=== PATIENT | male | born 1995 | race Caucasian/White ===

== ENCOUNTER 2017-02-27 11:50 | Emergency (ER) | payer BC ==
[2017-02-27 12:23] LABS: BLOOD UREA NITROGEN 13 mg/dL (9-20); CALCIUM 10.6 mg/dL (8.4-10.2); CHLORIDE 103 mmol/L (98-107); EST GLOMERULAR FILTRATION RATE > 60 mL/min; GLUCOSE 99 mg/dL (70-100); POTASSIUM 3.7 mmol/L (3.5-5.1); SODIUM 139 mmol/L (137-145)
[2017-02-27] MEDS ORDERED: NORMAL SALINE 1,000 ML IV ONE (12:25)
[2017-02-27] MEDS ORDERED: ONDANSETRON HCL 4 MG/2 ML VIAL ONE (12:25)
--- NOTE | 2017-02-27 14:16 | ER PHYSICIAN DOCUMENTATION ---
Physician Documentation [facility] Name:René Nieto Age:21 yrs Sex:Male :1995 Arrival Date:02/27/2017 Time:11:50 Bed3 Private MD: Brown Fair Disposition: 02/27 15:00 Chart complete. tl1 Disposition: 02/27/17 13:59 Discharged to Home/Self Care. Impression: Giardiasis. - Condition is Good. - Prescriptions for Flagyl 500 mg Oral Tablet - take 1 tablet by ORAL route every 8 hours for 10 days; 30 tablet. - Medical Reconciliation form form. - Follow up: Private Physician; When: 7 - 10 days; Reason: Recheck today's complaints, Continuance of care. - Problem is new. - Symptoms have improved. HPI: 12:08 This 21 yrs old Male presents to ER via Private Vehicle with complaints of tl1 Abdominal Pain, Nausea/Vomiting/Diarrhea. 12:08 The patient presents with diarrhea. Onset: The symptoms/episode began/occurred tl1 gradually, 2.5 day(s) ago. The symptoms are described as . [place] filtered water. About 2.5 days ago he noted the onset of frequent watery diarrhea, that is foul smelling. He has had some mild abdominal distension and bloating. Not really a "rotten eggs" odor. No blood. No f/c/s. No melena or hematochezia . No recent antibiotics or contacts with a similar illness. No travel outside the country.. Historical: - Allergies: Amoxicillin; - Home Meds: 1. None - PMHx: None; - PSHx: None; - Tetanus: < 10 years. - Ebola Screening: : No symptoms or risks identified at this time. . - Immunization history: NA. - Social history: Smoking status: Patient states was never smoker of tobacco. Patient uses alcohol occasionally. Patient/guardian denies using street drugs. ROS: 12:08 Abdomen/GI: Positive for diarrhea. tl1 12:08 All other systems are negative. Exam: 12:08 Constitutional: This is a well developed, well nourished patient who is awake, alert, tl1 and in no acute distress. Head/Face: Normocephalic, atraumatic. ENT: Nares patent. No nasal discharge, no septal abnormalities noted. Tympanic membranes are normal and external auditory canals are clear. Oropharynx with no redness, swelling, or masses, exudates, or evidence of obstruction, uvula midline. Mucous membranes moist. Cardiovascular: Regular rate and rhythm with a normal S1 and S2. No gallops, murmurs, or rubs. Normal PMI, no JVD. No pulse deficits. 12:08 Respiratory: Lungs have equal breath sounds bilaterally, clear to auscultation and tl1 percussion. No rales, rhonchi or wheezes noted. No increased work of breathing, no retractions or nasal flaring. 12:08 Abdomen/GI: Inspection: abdomen appears normal, Bowel sounds: active, Palpation: soft, mild abdominal tenderness, in the right lower quadrant and left lower quadrant, rebound tenderness, is not appreciated, voluntary guarding, is not appreciated, no appreciated organomegaly. 12:08 Musculoskeletal/extremity: Exam is negative for acute changes. 12:08 Skin: Exam negative for acute changes. 12:08 Neuro: Exam negative for acute changes. Vital Signs: 12:01 BP 125 / 95; Pulse 86; Resp 12; Temp 97.6; Pulse Ox 97% on R/A; Weight 79.38 kg; Height nf 6 ft. 5 in. (195.58 cm); Pain 0/10; 13:36 BP 117 / 76; Pulse 74; Resp 12; Pain 0/10; nf 12:01 Body Mass Index 20.75 (79.38 kg, 195.58 cm) nf MDM: 12:08 Patient medically screened. tl1 13:00 Differential diagnosis: Viral vs bacterial gastroenteritis, C dif, Parasites. Giardia tl1 most likely. Data reviewed: vital signs, nurses notes, lab test result(s), Giardia assay is positive., and as a result, I will discharge patient, administer antibiotics Flagyl. Counseling: I had a detailed discussion with the patient and/or guardian regarding: the historical points, exam findings, and any diagnostic results supporting the discharge/admit diagnosis, lab results, the need for outpatient follow up, to return to the emergency department if symptoms worsen or persist or if there are any questions or concerns that arise at home. Medication response:. Response to treatment: the patient's symptoms have mildly improved after treatment, and as a result, I will discharge patient. ED course: stable. see nurse's notes.. 02/27 12:25 Order name: BASIC METABOLIC PANEL; Complete Time: 08:33 EDMS 02/28 08:32 Interpretation: Normal Except: CARBON DIOXIDE 17; CALCIUM 10.6. tl1 02/27 13:33 Order name: GIARDIA ASSAY; Complete Time: 08:33 EDMS 02/28 08:32 Interpretation: Abnormal: GIARDIA ASSAY GIARDIA ASSAY IS POSITIVE. 1 02/27 12:04 Order name: Iv Saline Lock; Complete Time: 12:05 nf Dispensed Medications: 12:15 Drug: NS 0.9% 1000 ml; Route: IV; Rate: bolus; Site: left antecubital; nf 12:53 Follow up: IV Status: Completed infusion nf 12:15 Drug: Zofran 4 mg; Route: IVP; Infused Over: 2 mins; Site: left antecubital; nf 12:53 Follow up: Response: Nausea is decreased nf Signatures: Maude Skinner RN RN nf Leigh, Tom, MD MD tl1
--- NOTE | 2017-02-27 14:16 | ER NURSING DOCUMENTATION ---
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 Transition of care: Saline. Risk considerations: patient denies pain radiation to back or syncopal episode. 11:56 Acuity: BORIS 3 nf 11:56 Method Of Arrival: Private Vehicle nf 12:29 Notified ED Physician of patient's arrival and CC Dr. Elizondo notified. nf Triage Assessment: 11:56 General: Appears in no apparent distress, well nourished, well groomed, Behavior is nf pleasant. Pain: Denies pain. EENT: mildly dry lips and tongue. Cardiovascular: No deficits noted. Capillary refill < 3 seconds Rhythm is regular. Respiratory: Respiratory effort is even, unlabored, Respiratory pattern is regular. GI: Reports diarrhea, nausea, tolerance of fluids, tolerance of food, vomiting. : No deficits noted. Historical: - Allergies: Amoxicillin; - Home Meds: 1. None - PMHx: None; - PSHx: None; - Tetanus: < 10 years. - Ebola Screening: : No symptoms or risks identified at this time. . - Immunization history: NA. - Social history: Smoking status: Patient states was never smoker of tobacco. Patient uses alcohol occasionally. Patient/guardian denies using street drugs. Screenin:03 Infectious Disease Risk None. Abuse screen: Denies threats or abuse. Nutritional nf screening: No deficits noted. Assessment: 11:56 Pain: Denies pain. GI: Bowel sounds present X 4 quads. Abd is soft and non tender. nf 12:02 See Triage Assessment done by same RN. nf 13:13 Reassessment: Patient states feeling better. Patient states symptoms have improved. nf 13:35 Reassessment: awaiting disposition, denies needs. nf Vital Signs: 12:01 BP 125 / 95; Pulse 86; Resp 12; Temp 97.6; Pulse Ox 97% on R/A; Weight 79.38 kg; Height nf 6 ft. 5 in. (195.58 cm); Pain 0/10; 13:36 BP 117 / 76; Pulse 74; Resp 12; Pain 0/10; nf 12:01 Body Mass Index 20.75 (79.38 kg, 195.58 cm) ED Course: 11:55 Patient arrived in ED. jl 11:55 Maude Skinner, RN is Primary Nurse. nf 12:00 Triage completed. nf 12:00 Inserted peripheral IV: 20 gauge in left antecubital area and blood collected. rh 12:02 Arm band placed on Bed in low position Call Light in Reach Gowned HOB Elevated Side nf rails up x1. Family accompanied patient. 12:03 Valuables Remains with patient. Door closed. Noise minimized. Lights dimmed. Moved to private room. Verbal reassurance given. Warm blanket given. Pillow given. Diet: Patient is NPO. 12:08 Brown Elizondo MD is Attending Physician. tl1 12:48 Maude Skinner, RN is Primary Nurse. nf 12:54 Assisted to bathroom. nf 12:57 stool sample collected. nf Administered Medications: 12:15 Drug: NS 0.9% 1000 ml; Route: IV; Rate: bolus; Site: left antecubital; nf 12:53 Follow up: IV Status: Completed infusion nf 12:15 Drug: Zofran 4 mg; Route: IVP; Infused Over: 2 mins; Site: left antecubital; nf 12:53 Follow up: Response: Nausea is decreased nf Intake: 13:36 PO: 0ml; IV: 1000ml; Total: 1000ml. nf Output: 13:36 Urine: 1ml (Voided); Stool: 1 (Loose Stool) ; Total: 1ml. nf Outcome: 13:59 Discharge ordered by . tl1 14:10 IV D/Kailash nf 14:15 Discharged to Saline nf 14:15 Condition: improved 14:15 Discharge Assessment: Patient awake, alert and oriented x 3. No cognitive and/or functional deficits noted. Patient verbalized understanding of disposition instructions. 14:15 Discharge instructions given to patient, family, friend, Instructed on discharge instructions, follow up and referral plans. medication usage, Demonstrated understanding of instructions, medications, Prescriptions given X 1, flagyl 14:15 IV D/Kailash 14:16 Patient left the ED. nf 02/28 11:37 Discharge F/U Call: Spoke with: patient. Have you filled your prescriptions? yes. Signatures: Maude Skinner RN RN Brown Zamora MD MD tl1 [employer] [facility] Galvan
== END 2017-02-27 14:16 | disposition home or self-care (01) ==
LOC: ER 11:50
DX: A07.1 Giardiasis [lambliasis] (principal)
CPT/HCPCS: 80048; 87329; 96361; 96374; 99284; J2405; J7030